=== PATIENT | female | born 1995 | race African-American/Black ===

== ENCOUNTER 2020-08-25 15:17 | Outpatient (CLI) | payer OTHER ==
[2020-08-25 15:53] LABS: BILIRUBIN NEGATIVE (NEGATIVE); KETONE NEGATIVE (NEGATIVE); NITRITE NEGATIVE (NEGATIVE); UROBILINOGEN NORMAL mg/dL (< 2)
[2020-08-25 15:54] LABS: BASOPHILS 0.1 % (0-2); EOSINOPHILS 0.1 % (0-7); HEMOGLOBIN 10.1 g/dL (12-16); IMMATURE GRANULOCYTES 0.6 % (0-5); LYMPHOCYTE ABS# 1.06 10x3/uL (1.18-3.74); LYMPHOCYTES 7.9 % (15-50); MCH 22.4 pg (26.0-34.0); MCHC 31.6 g/dL (31.0-37.0); MEAN PLATELET VOLUME 9.7 fL (7.4-10.4); MONOCYTES 7.1 % (2-11); NEUTROPHIL ABS# 11.25 10x3/uL (1.56-6.13); NEUTROPHILS 84.2 % (40-80); PLATELET COUNT 247 10x3/uL (130-400); RBC 4.51 10x6/uL (4.00-5.40); RDW 16.1 % (11.5-14.5); WBC 13.4 10x3/uL (4.8-10.8)
== END 2020-08-25 16:26 | disposition home or self-care (01) ==
LOC: D.LDO 15:17
PROVIDERS: ATTEND Obstetrics & Gynecology
DX: O26.899 Other specified pregnancy related conditions, unspecified trimester (principal); R06.02 Shortness of breath

== ENCOUNTER 2020-08-30 22:38 | Emergency (ER) | payer SELFPAY ==
[~2020-08-30] VITALS: Ht 157.5 cm; Wt 73.6 kg
[2020-08-30 22:42] VITALS: BP 147/66; Ht 157.5 cm; Wt 73.6 kg
[2020-08-30] MEDS ORDERED: PRENAVITE1 TAB (22:45)
[2020-08-30] MEDS ORDERED: CEPHALEXIN500 M1 PO (22:56)
== END 2020-08-30 23:20 | disposition home or self-care (01) ==
LOC: D.ER 22:38
DX: O26.893 Other specified pregnancy related conditions, third trimester (principal); Z3A.31 31 weeks gestation of pregnancy; N73.9 Female pelvic inflammatory disease, unspecified

== ENCOUNTER 2020-10-21 16:41 | Outpatient (CLI) | payer MEDICAID ==
[2020-08-30 22:42] VITALS: BMI 29.7
[~2020-10-21 16:41] MED LIST: CEPHALEXIN500 M1 PO; PRENAVITE1 TAB
[2020-10-22 05:38] VITALS: BMI 33.9
== END 2020-10-21 19:50 | disposition home or self-care (01) ==
LOC: D.LDO 16:41
PROVIDERS: ATTEND Obstetrics & Gynecology
DX: O36.5990 Maternal care for other known or suspected poor fetal growth, unspecified trimester, not applicable or unspecified (principal)

== ENCOUNTER 2020-10-22 05:22 | Inpatient (IN) | payer MEDICAID ==
[~2020-10-22] VITALS: Ht 157.5 cm; Wt 83.9 kg
[2020-10-22 05:38] VITALS: BP 124/75; Ht 157.5 cm; Wt 83.9 kg
[2020-10-22 07:19] LABS: HEMATOCRIT 36.7 % (36.0-48.0); HEMOGLOBIN 11.3 g/dL (12-16); MCH 21.3 pg (26.0-34.0); MCHC 30.8 g/dL (31.0-37.0); MCV 68.9 fL (80.0-100.0); MEAN PLATELET VOLUME 8.6 fL (7.4-10.4); RBC 5.32 10x6/uL (4.00-5.40); RDW 18.5 % (11.5-14.5)
[2020-10-22 07:31] LABS: UDS - AMPHET NEGATIVE QUAL (NEGATIVE); UDS - BARB NEGATIVE QUAL (NEGATIVE); UDS - BENZO NEGATIVE QUAL (NEGATIVE); UDS - COCAINE NEGATIVE QUAL (NEGATIVE); UDS - OPIATE NEGATIVE QUAL (NEGATIVE); UDS - PCP NEGATIVE QUAL (NEGATIVE); UDS - THC NEGATIVE QUAL (NEGATIVE)
--- NOTE | 2020-10-22 10:32 | NUR ---
BABY GIRL BORN AT 1032
[2020-10-22 12:00] VITALS: BP 124/70
--- NOTE | 2020-10-22 12:20 | NUR ---
RECOVERY COMPLETED. VSS. FUNDUS FIRM AT U/U. YULIANA STONE AMT. QBL DOCUMENTED IN I/O TAB. HAGAN TO GRAVITY DRAINING PINK TINGED URINE. PT DENIES NEEDS OR C/O.
--- NOTE | 2020-10-22 12:22 | NUR ---
DR NAVA NOTIFIED PT DOES NOT HAVE POSTOP ORDERS.
[2020-10-22 13:00] VITALS: BP 135/65
--- NOTE | 2020-10-22 13:35 | NUR ---
DR NAVA CALLED FOR CLARIFICATION OF CBC ORDER THIS AFTERNOON.
[2020-10-22 14:00] VITALS: BP 127/73
--- NOTE | 2020-10-22 14:09 | NUR ---
PT C/O INCISIONAL PAIN OF "4" ON 0-10 PAIN SCALE. TORADOL 30 MG GIVEN SIVP OVER 2 MINUTES. PT INSTRUCTED ON MED. VERBALIZES UNDERSTANDING.
[2020-10-22 15:13] VITALS: BP 102/52
[2020-10-22 15:56] LABS: BASOPHILS 0.4 % (0-2); EOSINOPHILS 0.1 % (0-7); HEMATOCRIT 30.5 % (36.0-48.0); HEMOGLOBIN 9.5 g/dL (12-16); LYMPHOCYTES 10.6 % (15-50); MCH 21.2 pg (26.0-34.0); MCV 68.4 fL (80.0-100.0); MEAN PLATELET VOLUME 7.4 fL (7.4-10.4); MONOCYTES 7.1 % (2-11); NEUTROPHILS 81.8 % (40-80); PLATELET COUNT 253 10x3/uL (130-400); RBC 4.46 10x6/uL (4.00-5.40); RDW 18.4 % (11.5-14.5); WBC 13.4 10x3/uL (4.8-10.8)
--- NOTE | 2020-10-22 16:00 | NUR ---
PT SITTING UP IN BED. CARING FOR INFANT. DENIES PAIN OR NEEDS. FRESH ICE WATER PROVIDED. FRESH ICE PACK TO INCISION. DRESSING DRY WITHOUT DRAINAGE NOTED.
--- NOTE | 2020-10-22 16:46 | NUR ---
DR NAVA NOTIFIED OF LAB RESULTS. NO NEW ORDERS.
--- NOTE | 2020-10-22 17:00 | NUR ---
PT SITTING UP IN BED. CONSUMING CLEAR LIQUID DIET. TOLERATING WELL.
--- NOTE | 2020-10-22 17:43 | NUR ---
PERICARE DONE. PAD CHANGED. PT MOVES WELL IN BED. FUNDUS FIRM AT U/U. RUBRA LOCHIA SMALL AMT. SEVERAL SMALL DIME SIZED CLOTS NOTED. PT DENIES PAIN. FRESH ICE WATER PROVIDED TO PT. ABDOMINAL DRESSING DRY WITHOUT DRAINAGE. ICE PACK TO INCISION.
--- NOTE | 2020-10-22 18:11 | NUR ---
DR NAVA NOTIFIED OF URINE OUTPUT. ORDER RECEIVED.
--- NOTE | 2020-10-22 18:21 | NUR ---
NS UP AT BOLUS RATE. PIV SITE CLEAR. NS WITH PITOCIN CLAMPED OFF. DILAUDID MANAGER MULTICULTURAL CONTINUES ORDERED.
--- NOTE | 2020-10-22 18:51 | NUR ---
BEDSIDE SHIFT REPORT RCVD FROM Melanie SOTO RN. PT RATES PAIN 2/10 CURRENTLY AND IS ATTEMPTING TO BF INFANT. DENIES NEEDS AT THIS TIME.
--- NOTE | 2020-10-22 20:21 | NUR ---
TORADOL GIVEN PER ORDER AND PT REQUEST FOR PAIN RATED 4/10. SHIFT ASSESSMENT COMPLETED AT THIS TIME. SEE FLOWSHEET. VSS. FF, U/1. SCANT LOCHIA RUBRA NOTED TO PERIPAD. HAGAN CATHETER DRAINING TO GRAVITY. PIV TO LT HAND PATENT, NO SIGNS OF ERYTHEMA OR EDEMA NOTED TO SITE. SCD'S IN PLACE AND PUMP FUNCTIONING APPROPRIATELY. PT DENEIS FURTHER NEEDS AT THIS TIME. BED LOW, WHEELS LOCKED, CALL LIGHT AND PHONE WITHIN REACH, SIDE RAILS UP X2.
[2020-10-22 20:26] VITALS: BP 117/66
--- NOTE | 2020-10-22 22:15 | NUR ---
ROUNDS MADE. PT SITTING UP IN BED. DENIES PAIN OR NEEDS. WILL CONTINUE TO MONITOR.
--- NOTE | 2020-10-22 23:19 | NUR ---
PT RINGS CALL LIGHT REPORTING SHE JUST HAD HER FIRST BOWEL MOVEMENT. RN TO BEDSIDE. PT LYING SUPINE WITH HOB 45 DEGREES. WHEN QUESTIONED PT STATES, "I POOTED, NOT POOPED." POPSICLES X2 PROVIDED PER PT REQUEST. PT RATES PAIN 2/10 AT THIS TIME AND TOLERABLE. DENIES FURTHER NEEDS.
[2020-10-23 02:30] VITALS: BP 121/61
--- NOTE | 2020-10-23 02:30 | NUR ---
ROUNDS MADE. VSS. I&O COLLECTED. TORADOL GIVEN PER ORDER FOR PAIN RATED 3/10 AT THIS TIME. SEE EMAR FOR ADMINISTRATION. PT STATES SHE IS DROWSY AND ASKS FOR TO GO TO NBN. SAME PROVIDED. INFANT TRANSPORTED TO NBN VIA OPEN CRIB.
--- NOTE | 2020-10-23 05:30 | NUR ---
NBN RN TO BEDSIDE. REPORTS PT WAS SLEEPING WITH INFANT IN BED. RN PLACED INFANT IN OPEN CRIB AT BEDSIDE. REPORTS PT DENIES ANY CURRENT NEEDS OR PAIN.
--- NOTE | 2020-10-23 06:02 | NUR ---
RN TO BEDSIDE. SWADDLED IN BLANKETS X2 PER PT REQUEST. ENCOURAGED FOB AND PT TO FEED AT THIS TIME. HAGAN CATH EMPTIED. PERIPAD AND CHUCKS CHANGED. SMALL LOCHIA RUBRA NOTED TO PERIPAD, NO CLOTS. FUNDUS REMAINS FIRM, U/1. PT DENIES PAIN OR NEEDS AT THIS TIME.
[2020-10-23 06:53] LABS: BASOPHILS 0.4 % (0-2); EOSINOPHILS 0.6 % (0-7); HEMATOCRIT 27.1 % (36.0-48.0); HEMOGLOBIN 8.6 g/dL (12-16); LYMPHOCYTES 18.6 % (15-50); MCH 22.2 pg (26.0-34.0); MCHC 31.9 g/dL (31.0-37.0); MCV 69.7 fL (80.0-100.0); MEAN PLATELET VOLUME 7.8 fL (7.4-10.4); MONOCYTES 6.4 % (2-11); PLATELET COUNT 214 10x3/uL (130-400); RBC 3.89 10x6/uL (4.00-5.40); RDW 18.8 % (11.5-14.5)
[2020-10-23 06:55] LABS: WBC 9.5 10x3/uL (4.8-10.8)
[2020-10-23 07:00] VITALS: BP 116/69
--- NOTE | 2020-10-23 07:00 | NUR ---
RECEIVED PT LYING SUPINE IN BED WITH HOB UP 30 DEGREES. PT AWAKE. AAO X 3. VSS. HRRR WITHOUT AUDIBLE MURMUR. BBS CLEAR. BS X 4. ABDOMEN SOFT/NON-DISTENDED. FUNDUS FIRM AT U/U. RUBRA LOCHIA SCANT AMT. PERIPAD CHANGED. NO CLOTS NOTED. ABDOMINAL DRESSING DRY WITH OLD DRAINAGE NOTED/CIRCLED. NEG HOMANS' SIGN. PPP. NO EDEMA NOTED TO BLE. PT STATES PAIN OF "1" ON 0-10 PAIN SCALE. PIV OF NS WITH PITOCIN 20 UNITS INFUSING AT 125 ML/HR. DILAUDID SQL REPORT DEVELOPER INFUSING ORDERED. PIV SITE CLEAR. FRESH ICE PACK TO INCISION. FRESH ICE WATER PROVIDED TO PT. SR UP X 2. CALL LIGHT IN REACH.
[2020-10-23 07:15] LABS: RAPID PLASMA REAGIN Non Reactive (Non Reactive)
--- NOTE | 2020-10-23 09:10 | NUR ---
T/C TO DR NAVA. PT STATUS UPDATE GIVEN. ORDERS RECEIVED.
--- NOTE | 2020-10-23 09:24 | NUR ---
TORADOL 30 MG GIVEN SIVP OVER 2 MINUTES. PT INSTRUCTED ON MED. VERBALIZES UNDERSTANDING.
--- NOTE | 2020-10-23 09:30 | NUR ---
PIV CONVERTED TO SALINE LOCK. FLUSHES EASILY WITH 10 ML NS. HAGAN DC'D WITH 700 ML OF CLEAR, YELLOW URINE. PT SHABANA WELL. INSTRUCTED TO CALL NURSE WHEN NEEDS TO VOID. VERBALIZES UNDERSTANDING.
--- NOTE | 2020-10-23 09:32 | NUR ---
DR NAVA TO ROOM. REMOVES DRESSING. VISITS WITH PT.
--- NOTE | 2020-10-23 10:15 | NUR ---
PT VIBRATION ANALYST LIGHT. REQUESTS TO AMB TO BR TO VOID. THIS NURSE TO ROOM. PT OOB AND AMB, WITH STEADY GAIT, TO BR. VOIDS 500 ML OF CLEAR, YELLOW URINE. PERICARE DONE PER PT. GOWN CHANGED. PERIPAD TO INCISION. INCISION WITH SEROSANGUINOUS DRAINAGE NOTED. PAD AND PANTIES ON. PT AMB BACK TO BED. SHABANA ACTIVITY WELL. DECLINES PAIN MED AT THIS TIME.
--- NOTE | 2020-10-23 12:00 | NUR ---
PT LYING SUPINE IN BED. WAKES UPON VERBAL STIMULATION. PT DENIES PAIN. REGULAR DIET SERVED. DENIES NEEDS OR C/O.
[2020-10-23 12:56] VITALS: BP 111/61
--- NOTE | 2020-10-23 12:57 | NUR ---
PT C/O INCISIONAL PAIN OF "5" ON 0-10 PAIN SCALE. NORCO 10/325 GIVEN PO ORDERED. PT INSTRUCTED ON MED. VERBALIZES UNDERSTANDING.
--- NOTE | 2020-10-23 13:35 | NUR ---
PT OOB AND AMB TO BR. VOIDS 650 ML OF CLEAR, YELLOW URINE. PERICARE DONE. PERIPAD TO INCISION CHANGED WITH SCANT AMT OF SEROSANGUINOUS DRAINAGE NOTED.
--- NOTE | 2020-10-23 15:17 | NUR ---
PT VOIDS 250 ML OF CLEAR, YELLOW URINE. SCANT SEROSANGUINOUS DRAINAGE NOTED TO PERIPAD TO INCISION. PERIPAD CHANGED. SCANT RUBRA LOCHIA NOTED.
[2020-10-23 16:31] VITALS: BP 122/62
--- NOTE | 2020-10-23 16:32 | NUR ---
PT SITTING UP IN BED. HOLDS WITH MUCH WARMTH SHOWN. VSS. PT DENIES PAIN OR NEEDS.
--- NOTE | 2020-10-23 18:28 | NUR ---
PT AMBULATORY IN ROOM. STATES VOIDED AGAIN. C/O INCISIONAL PAIN OF "2" ON 0-10 PAIN SCALE. MOTRIN 600 MG GIVEN PO ORDERED. PT ENCOURAGED TO AMBULATE IN HALLS AND SHOWER.
--- NOTE | 2020-10-23 18:50 | NUR ---
BEDSIDE SHIFT REPORT RCVD. PT DENIES PAIN OR NEEDS CURRENTLY. WILL RETURN FOR SHIFT ASSESSMENT.
--- NOTE | 2020-10-23 19:50 | NUR ---
PT RINGS CL. RN TO BEDSIDE. PT ASKS RN TO ASSESS AREA BELOW INCISION REPORTING IT FEELS "SWOLLEN." NO ERYTHEMA OR EDEMA NOTED TO INCISION SITE OR AREA BELOW INCISION. SEROSANGUINOUS DRAINAGE WAS REPORTED BY AM SHIFT RN AT BEDSIDE REPORT. EDUCATED PT ON POST-OP CARE. WILL CONTINUE TO MONITOR DRAINAGE AND INCISION AREA. ABD IS DISTENDED AND FIRM AT RLQ AND LLQ. PT REPORTS SHE IS STILL NOT PASSING "A LOT" OF GAS. ENCOURAGED TO WALK IN THE [place] 2 MORE TIMES BEFORE BED TONIGHT. PT IS AGREEABLE AND VERBALIZES UNDERSTANDING.
--- NOTE | 2020-10-23 20:00 | NUR ---
PT STATES SHE IS GOING TO TAKE A SHOWER AT THIS TIME. SL TO LEFT HAND D/C'D WITH CATH TIP INTACT. POPSICLES ALSO GIVEN PER REQUEST WELL APPLE JUICE. PT DENIES FURTHER NEEDS.
[2020-10-23 20:30] VITALS: BP 119/65
--- NOTE | 2020-10-23 20:30 | NUR ---
PT REQUESTS AND RECEIVES POPSICLE AND APPLE JUICE. PT DENIES PAIN OR FURTHER NEEDS.
--- NOTE | 2020-10-23 21:30 | NUR ---
ROOM CHECK COMPLETE. PT AWAKE. ASKED FOR MORE ICE WATER AND FOR 2 BLANKETS. BROUGHT TO PT. DENIES NEEDING ANYTHING ELSE @ THIS TIME.
--- NOTE | 2020-10-23 23:54 | NUR ---
ROOM CHECK COMPLETE. PT AWAKE AND HOLDING BABY. DENIES NEEDING ANYTHING @ THIS TIME.
--- NOTE | 2020-10-24 03:19 | NUR ---
PT REQUESTS MOTRIN FOR PAIN RATED 2/10. ADVISED NEXT AVAILABLE DOSE IS 0600. UNDERSTANDING VERBALIZED. NO FURTHER NEEDS VOICED.
[2020-10-24 04:22] VITALS: BP 106/52
--- NOTE | 2020-10-24 04:22 | NUR ---
ROUNDS MADE. PT REQUESTS AND RECEIVES NORCO 5/325 MG X1 TAB FOR PAIN RATED 5/10. INFANT SWADDLED IN BLANKETS X2 PER PT REQUEST. FOB SNORING LOUDLY ON COUCH AT BEDSIDE. VSS. PT DENIES FURTHER NEEDS.
--- NOTE | 2020-10-24 06:04 | NUR ---
PT RATES PAIN 3/10 AT THIS TIME AND TOLERABLE. SITTING UP IN BED WITH UP IN ARMS BONDING. FOB SLEEPING ON COUCH AT BEDSIDE. PT DENIES NEEDS AT THIS TIME.
--- NOTE | 2020-10-24 07:00 | NUR ---
PT FEEDING INFANT AT TIME OF BEDSIDE REPORT. DENIES NEEDS AND RATES PAIN AT 3/10. CALL LIGHT IN REACH.
--- NOTE | 2020-10-24 08:31 | NUR ---
THIS RN TO ROOM FOR AM ASSESSEMENT, UPON ENTERING ROOM PT IS TURNED TO HER LEFT WITH EYES CLOSED AND RESP EVEN, LEFT UNDISTURBED. CALL LIGTH IN REACH WITH SIDE RAILS UP X 2.
--- NOTE | 2020-10-24 09:45 | NUR ---
CALLED TO ROOM, PT ASKING FOR ADDITIONAL TOÑITO PADS AND MESH BRIEFS. THESE ARE PLACED IN BATHROOM. AM ASSESSMENT COMPLETED AT THIS TIME. SHE RATES PAIN AT 2/10 AND DENIES NEED FOR PAIN MEDICATION. BIKINI INCISION WITH CHRISTEN CLEAN AND DRY, FUNDUS FIRM AT U/U WITH LIGHT BLEEDING NOTED. IN CRIB AT BEDSIDE AND SIG OTHER SLEEPING ON COUCH. SIDE RAILS UP X 2 WITH CALL LIGHT IN REACH.
--- NOTE | 2020-10-24 12:30 | NUR ---
PT CALLS OUT REQUESTING PAIN MED, MEDS GIVEN SCANNED TO EMAR. RATES AT 4/10 AT THIS TIME. NO OTHER NEEDS VOICED.
--- NOTE | 2020-10-24 17:11 | NUR ---
LARGE CUP OF ICE WATER REQUESTED, NO OTHER NEEDS AT THIS TIME.
--- NOTE | 2020-10-24 19:31 | NUR ---
PT. MEDICATED WITH NORCO 10/325 MG 1 TAB AND IBUPROFEN 600 MG 1 TAB ADMINISTERED PER MD ORDERS AND PT. COMPLAINT OF PAIN. PT. REPORTS PAIN AT "2" WHEN "JUST SITTING HERE" BUT AT "5-6" WHEN GETTING UP AND MOVING AROUND. PT. ALSO GIVE A MYLICON 80 MG CHEWABLE TABLET AT THIS TIME.
[2020-10-24 19:35] VITALS: BP 126/77
--- NOTE | 2020-10-24 19:35 | NUR ---
REINTRODUCED SELF TO PT. NURSE TO PROVIDE CARE THIS SHIFT. DISCUSSED CONTINUED PLAN OF CARE TO INCLUDE MEDICATIONS ORDERED FOR PAIN RELIEF. PT. AAO X 3. RESP. ARE EVEN AND UNLABORED. BREATH SOUNDS CLEAR. BOWEL SOUNDS ACTIVE X 4. PT. REPORTS PASSING GAS WELL TODAY. BIKINI LINE INCISION WITH CHRISTEN IS C/D/I. PT. REPORTS "IT FEELS LIKE ONE HAS COME LOOSE ON THE LEFT SIDE". REASSURED PT. THAT NONE OF HER CHRISTEN APPEAR TO BE LOOSE. FUNDUS FIRM, MIDLINE, U/-2 WITH LIGHT LOCHIA RUBRA NOTED. NO CLOTS EXPELLED AT THIS TIME. +1 PITTING EDEMA NOTED TO BILATERAL LOWER EXTREMITIES. PEDAL PULSES PALPATED WELL.
--- NOTE | 2020-10-24 19:57 | NUR ---
EMPTIED ALL TRASH IN PT.'S ROOM DUE TO ALL WERE FULL AND FLOWING OVER. PT. FEEDING AT THIS TIME. DENIES FURTHER NEEDS. WILL CONT. TO MONITOR.
--- NOTE | 2020-10-24 20:02 | NUR ---
COLACE 100 MG CAPSULE PROVIDED PER MD ORDERS. PT. DENIES ANY NEEDS AT PRESENT.
--- NOTE | 2020-10-24 22:34 | NUR ---
pt. walking on unit at this time. stops at nurses desk and request "that burning sensation is still bad and i really think that staple is coming loose and i want you to look at it again". Advised pt. to call me when she is back to room and i will come assess again.
--- NOTE | 2020-10-24 23:28 | NUR ---
pt. in shower upon entering room to provide pain medication. instructed significant other to have her call me when she gets out and i will bring back.
--- NOTE | 2020-10-24 23:32 | NUR ---
PT. OUT OF SHOWER AND MOVING ABOUT IN ROOM. PT. RATES PAIN AT "3" WHEN SITTING STILL AND "5-6" WHEN MOVING AROUND. PT. MEDICATED WITH NORCO 10/325 MG 1 TAB PER MD ORDERS AND PT.'S COMPLAINT OF PAIN AFTER WALKING HALLWAYS AND TAKING A SHOWER. PT. DENIES FURTHER NEEDS AT THIS TIME.
[2020-10-24 23:50] VITALS: BP 131/67
--- NOTE | 2020-10-25 01:10 | NUR ---
SCD'S REAPPLIED AT PT. REQUEST DUE TO SWELLING. INSTRUCTED PT. THAT THESE ARE NOT FOR SWELLING BUT TO DECREASE CHANCE OF HAVING A CLOT POST DELIVERY. DISCUSSED WITH PT. THAT SWELLING WILL MOST LIKELY GET WORSE BEFORE IT GETS BETTER AND ALL SHE CAN REALLY DO TO HELP WITH THIS IS TO DRINK LOTS OF WATER AND KEEP LEGS ELEVATED WHEN SITTING OR LYING.
--- NOTE | 2020-10-25 08:28 | NUR ---
THIS RN TO ROOM FOR PT CHECK. PT SITTING UP IN BED, HOLDING IN BED NEXT TO HER. AAOx3. PT DENIES PAIN OR NEEDS. POC DISCUSSED, PT HOPING TO D/C TO HOME TODAY WITH . WILL RETURN FOR SHIFT ASSESSMENT. SRUx2, CL IN REACH.
--- NOTE | 2020-10-25 10:53 | NUR ---
SCHEDULED MEDS AND PAIN MEDS ADMIN PER PT REQUEST FOR PAIN, SEE EMAR FOR DOC.
[2020-10-25 11:56] VITALS: BP 126/84
--- NOTE | 2020-10-25 11:56 | NUR ---
SHIFT ASSESSMENT COMPLETED, VSS, SEE FLOWSHEETS FOR DOC.
--- NOTE | 2020-10-25 12:03 | NUR ---
DR MALIN GIVES ORDER FOR CBC BEFORE PT AUGUST D/C TO HOME. DRAWN BY THIS RN AND TAKEN TO LAB.
[2020-10-25] MEDS ORDERED: IBUPROFEN600 MG PO (12:20)
[2020-10-25] MEDS ORDERED: HYDROCODON-ACE1 EA10 PO (12:20)
[2020-10-25 12:23] LABS: BASOPHILS 0.3 % (0-2); EOSINOPHILS 2.1 % (0-7); HEMOGLOBIN 8.8 g/dL (12-16); LYMPHOCYTES 17.5 % (15-50); MCH 21.8 pg (26.0-34.0); MCHC 31.4 g/dL (31.0-37.0); MCV 69.3 fL (80.0-100.0); MEAN PLATELET VOLUME 7.7 fL (7.4-10.4); MONOCYTES 7.1 % (2-11); PLATELET COUNT 242 10x3/uL (130-400); RBC 4.04 10x6/uL (4.00-5.40); RDW 18.7 % (11.5-14.5); WBC 9.1 10x3/uL (4.8-10.8)
--- NOTE | 2020-10-25 13:00 | NUR ---
DR MALIN REVIEWS CBC RESULTS AND GIVES ORDER FOR D/C TO HOME.
--- NOTE | 2020-10-25 13:05 | NUR ---
PT GIVEN DISCHARGE INSTRUCTIONS AND SIGNS CHART COPIES. PRESCRIPTION PROVIDED BY MD PROVIDED WELL. PT VERBALIZES UNDERSTANDING AND DENIES QUESTIONS.
--- NOTE | 2020-10-25 13:10 | NUR ---
PT OFF UNIT VIA W/C TO PRIVATE VEHICLE FOR D/C TO HOME WITH , FOB TO DRIVE PT HOME.
--- NOTE | 2020-10-26 19:02 | MORECARE ---
CASE MANAGEMENT DISCHARGE SUMMARY PATIENT: NOEMI OSCAR UNIT: [id number] ADM DATE: 10/22/20 AGE: 25 : 89 SEX: F ROOM/BED: [facility] AUTHOR: NATHAN,DOC PHYSICIAN: REFERRING PHYSICIAN: CAMILO NAVA MD DATE OF SERVICE: 10/26/20 Case Management Discharge Planning Summary DCP REVIEW SUMMARY ANTICIPATED D/C DATE: EXPECTED LOS : CASE STATUS: DCP Complete INITIAL REVIEW: 10/22/2020 INITIAL REVIEWER: Tova Rosa FINAL DISCHARGE DISPOSITION: : FINAL REVIEWER: FINAL REVIEW DATE: DCP [employer] QUESTION: ANSWER : PATIENT: NOEMI OSCAR ENCOUNTER: [id number] MEDICAL RECORD#: [id number] ADMISSION DATE: 10/22/2020 DISCHARGE DATE: 10/25/2020 ATTENDING MD: CAMILO MESA : AGE: 25 MARITAL STATUS: S DC PLAN ID: [id number] FACILITY: [facility] PRINTED ON: 10/26/20 19:02 CT All edits/amendments must be made on the electronic document DICTATION DATE: 10/26/201901 FIRE HYDRANT OPERATOR: DM 10/26/201901 RPT#: [id number] DC DATE:10/25/20 STATUS: DIS IN [facility] [address] [place] [address] END OF REPORT
== END 2020-10-25 13:10 | disposition home or self-care (01) | DRG 788 ==
LOC: D.LD 05:22
PROVIDERS: Student in an Organized Health Care Education/Training Program; ADMIT Obstetrics & Gynecology; ATTEND Obstetrics & Gynecology
PROC: 10D00Z1 Extraction of Products of Conception, Low, Open Approach (ICD-10-PCS; principal; 2020-10-22 09:00)
DX: O36.5930 Maternal care for other known or suspected poor fetal growth, third trimester, not applicable or unspecified (principal); Z3A.39 39 weeks gestation of pregnancy; Z37.0 Single live birth